=== PATIENT | male | born 1970 ===

== ENCOUNTER 2016-12-09 18:04 | Inpatient (IN) | payer SELFPAY ==
[2016-12-09] MEDS ORDERED: Sodium Chloride 0.9% 1,000 ML IV STA (19:51)
[2016-12-09 20:07] LABS: BASO % 0.2 % (0.0-2.0); HEMATOCRIT 46.6 % (35.0-51.0); LYMPH # 0.9 K/uL (1.0-4.3); MEAN CELL VOLUME 89.7 fL (80.0-94.0); MEAN CORPUSCULAR HEMOGLOBIN 29.7 pg (27.0-31.0); MEAN CORPUSCULAR HGB CONC 33.1 g/dL (33.0-37.0); MEAN PLATELET VOLUME 9.3 fL (7.2-11.7); MONO % 4.6 % (0.0-10.0); PLATELET COUNT 493 K/uL (130-400); RED CELL DISTRIBUTION WIDTH 13.6 % (11.5-14.5); WHITE BLOOD COUNT 21.4 K/uL (4.8-10.8)
[2016-12-09 20:12] LABS: URINE BILIRUBIN NEGATIVE (NEGATIVE); URINE COLOR Straw (YELLOW); URINE GLUCOSE (UA) 3+ mg/dL (Normal); URINE KETONE 2+ mg/dL (NEGATIVE); URINE LEUKOCYTE ESTERASE NEG Leu/uL (Negative); URINE PROTEIN 2+ mg/dL (NEGATIVE); URINE UROBILINOGEN NORMAL mg/dL (0.2-1.0); WBC URINE < 1 /hpf (0-5)
[2016-12-09 20:15] LABS: CHLORIDE 95 mmol/L (98-107); SODIUM 137 mmol/L (132-148)
--- NOTE | 2016-12-09 20:15 | C.PDOC ---
History Of Present Illness 46 year old male with a Hx of IDDM who presents to the ER with a complaint of vomiting and abdominal pain x1 day. Patient states he has been vomiting every 2 hours and has not taken anything for his symptoms. Patient reports he recently came [place] this country from [facility] 10 days ago. Denies Hx of previous symptoms , bloody vomiting, fever, or diarrhea. Time Seen by Provider: 12/09/16 19:10 Chief Complaint (Nursing): Abdominal Pain History Per: Patient History/Exam Limitations: no limitations Onset/Duration Of Symptoms: Days (1) Current Symptoms Are (Timing): Still Present Location Of Pain/Discomfort: Epigastric Radiation Of Pain To:: None Quality Of Discomfort: Unable To Describe Associated Symptoms: Vomiting. denies: Fever, Diarrhea Exacerbating Factors: None Alleviating Factors: None Recent travel outside of the [place]: No Past Medical History Reviewed: Historical Data, Nursing Documentation, Vital Signs Vital Signs: Last Vital Signs Temp 98.2 F 12/09/16 18:16 Pulse 117 H 12/09/16 18:16 Resp 23 12/09/16 18:16 BP 135/87 12/09/16 18:16 Pulse Ox 100 12/09/16 22:02 - Medical History PMH: Diabetes Surgical History: No Surg Hx Family History: States: Unknown Family Hx - Social History Hx Alcohol Use: No Hx Substance Use: No - Immunization History Hx Tetanus Toxoid Vaccination: No Hx Influenza Vaccination: Yes Hx Pneumococcal Vaccination: No Review Of Systems Except As Marked, All Systems Reviewed And Found Negative. Constitutional: Negative for: Fever Gastrointestinal: Positive for: Vomiting, Abdominal Pain. Negative for: Diarrhea Physical Exam - Physical Exam Additional Physical Exam Comments: Constitutional: No acute distress. Head: Normocephalic. Atraumatic. Eyes: PERRL. EOMI. ENT: Dry mucous membranes. Neck: Supple. Cardiovascular: Tachycardic. Radial pulses 2+ bilaterally. Chest: No tenderness. Respiratory: Clear to auscultation bilaterally. GI: Soft. Nontender. Nondistended. Back: No CVA tenderness. Musculoskeletal: No tenderness or swelling of extremities. Skin: No rash. Neurologic: Alert, no focal deficit. ED Course And Treatment O2 Sat by Pulse Oximetry: 100 (Room air) Pulse Ox Interpretation: Normal Medical Decision Making Medical Decision Making: Plan: * CT abd/pel * EKG * Blood work * Urine culture * Zofran * IV fluids EKG: SR 110 bmp, no ST/T wave changes VBG shows pH 7.13. WBC 21.4 Glucose 580 Creatinine 1.7 Potassium 5.3 CO2 8 Lipase 838 AST/ALT/Tbili WNL Ketones Moderate UA shows no infection FINDINGS: Lower thorax: The bilateral lung bases are clear. Small hiatal hernia. ABDOMEN: Liver: No acute findings Gallbladder and bile ducts: No acute finding. No calcified stones. No intra-extrahepatic biliary ductal dilation. Pancreas: Limited evaluation secondary to the lack of intravenous contrast. Spleen: No acute findings. Adrenals: No acute findings. Kidneys and ureters: No obstructing stones. No hydronephrosis. PELVIS: Bladder: No acute findings. Reproductive: No acute findings. Appendix: The appendix is of normal caliber (series 3, image 131; series 601 , image 58). ABDOMEN and PELVIS: Stomach and bowel: No acute findings. Peritoneum: No acute findings. Lymph nodes: Limited evaluation without intravenous contrast. Vasculature: No aortic aneurysm. Bones: No acute fracture. IMPRESSION: No obstructive uropathy. Normal appendix. Small hiatal hernia. [facility] accepts patient to ICU. Started on insulin drip. Dr. Guzman accepts patient to hospitalist service. Disposition - Disposition Disposition: HOSPITALIZED Disposition Time: 21:55 Condition: CRITICAL Forms: [facility] (Tajik) - Clinical Impression Clinical Impression: Diabetic ketoacidosis - Scribe Statement The provider has reviewed the documentation as recorded by the Scribtulio Edwards All medical record entries made by the Scribe were at my direction and personally dictated by me. I have reviewed the chart and agree that the record accurately reflects my personal performance of the history, physical exam, medical decision making, and the department course for this patient. I have also personally directed, reviewed, and agree with the discharge instructions and disposition.
[2016-12-09 20:16] LABS: POTASSIUM 5.3 mmol/L (3.6-5.2)
[2016-12-09 20:17] LABS: GFR AFRICAN-AMERICAN 53
[2016-12-09 20:18] LABS: ALB/GLOB RATIO 1.4 (1.0-2.1); ALKALINE PHOSPHATASE 108 U/L (38-126); ALT/SGPT 47 U/L (21-72); AST/SGOT 27 U/L (17-59); BILIRUBIN,TOTAL 0.7 mg/dL (0.2-1.3); BLOOD UREA NITROGEN 27 mg/dL (9-20); CALCIUM 9.7 mg/dl (8.6-10.4)
[2016-12-09 20:19] LABS: DRAW SITE VENOUS; VENOUS BLOOD GAS BASE EXCESS -18.5 mmol/L (0.0-2.0); VENOUS BLOOD GAS PCO2 28 mmHg (40-60); VENOUS BLOOD PH 7.13 (7.32-7.43)
[2016-12-09 20:20] LABS: CARBON DIOXIDE 8 mmol/L (22-30); GLUCOSE,RANDOM 580 mg/dL (75-110); RBC URINE 3 /hpf (0-3)
[2016-12-09 20:22] LABS: URINE BLOOD 1+ (NEGATIVE)
[2016-12-09] MEDS ORDERED: Piperacill/Tazo 4.5gm in Dex 4.5 GM/100 ML BAG IVPB STA (20:38)
[2016-12-09] MEDS ORDERED: Vancomycin 1 gm/NS 200 ml 1 GM/200 ML BAG IVPB STA (20:38)
[2016-12-09] MEDS ORDERED: (Novolin R) Insulin Human Regular 100 units/ml vial IV STA (20:38)
[2016-12-09] MEDS ORDERED: (Novolin R) Insulin Human Regular 100 units/ml vial ONE (20:43)
[2016-12-09] MEDS ORDERED: Vancomycin 1 GM 1 GM/250 ML BAG IVPB ONE (20:43)
[2016-12-09 20:49] LABS: NEUTROPHIL 91 % (50-75); TOTAL CELLS COUNTED 100
--- NOTE | 2016-12-09 21:50 | CT ---
EXAM: CT Abdomen and Pelvis Without Intravenous Contrast CLINICAL HISTORY: 46 years old, male; Pain and signs and symptoms; Vomiting; Abdominal pain; Additional info: Abdominal pain, vomiting TECHNIQUE: Axial computed tomography images of the abdomen and pelvis without intravenous contrast. All CT scans at this facility use one or more dose reduction techniques, viz.: automated exposure control; ma/kV adjustment per patient size (including targeted exams where dose is matched to indication; i.e. head); or iterative reconstruction technique. COMPARISON: No relevant prior studies available. FINDINGS: Lower thorax: The bilateral lung bases are clear. Small hiatal hernia. ABDOMEN: Liver: No acute findings Gallbladder and bile ducts: No acute finding. No calcified stones. No intra-extrahepatic biliary ductal dilation. Pancreas: Limited evaluation secondary to the lack of intravenous contrast. Spleen: No acute findings. Adrenals: No acute findings. Kidneys and ureters: No obstructing stones. No hydronephrosis. PELVIS: Bladder: No acute findings. Reproductive: No acute findings. Appendix: The appendix is of normal caliber (series 3, image 131; series 601, image 58). ABDOMEN and PELVIS: Stomach and bowel: No acute findings. Peritoneum: No acute findings. Lymph nodes: Limited evaluation without intravenous contrast. Vasculature: No aortic aneurysm. Bones: No acute fracture. IMPRESSION: No obstructive uropathy. Normal appendix. Small hiatal hernia.
[2016-12-09] MEDS ORDERED: Insulin Human Regular 100 UNIT in Sodium Chloride 0.9% 99 ML IV SCH (22:15)
[2016-12-09] MEDS: Insulin Human Regular 100 UNIT in Sodium Chloride 0.9% 99 ML IV SCH (23:30)
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
[2016-12-10] MEDS: Potassium Chloride 20 MEQ in Dextrose 5%/0.45% NS 1,000 ML IV SCH ×5 (00:56→15:27)
[2016-12-10] MEDS: Insulin Human Regular 100 UNIT in Sodium Chloride 0.9% 99 ML IV SCH ×2 (01:55→11:07)
[2016-12-10 06:57] LABS: BASO # 0.1 K/uL (0.0-0.2); BASO % 0.4 % (0.0-2.0); EOS % 0.1 % (0.0-4.0); HEMATOCRIT 40.3 % (35.0-51.0); LYMPH # 1.4 K/uL (1.0-4.3); LYMPH % 8.1 % (20.0-40.0); MEAN CELL VOLUME 86.8 fL (80.0-94.0); MEAN CORPUSCULAR HEMOGLOBIN 29.9 pg (27.0-31.0); MEAN CORPUSCULAR HGB CONC 34.4 g/dL (33.0-37.0); MEAN PLATELET VOLUME 9.5 fL (7.2-11.7); MONO # 1.5 K/uL (0.0-0.8); NRBC % 0.1 % (0.0-2.0); PLATELET COUNT 343 K/uL (130-400); RED CELL DISTRIBUTION WIDTH 13.5 % (11.5-14.5); WHITE BLOOD COUNT 17.1 K/uL (4.8-10.8)
[2016-12-10 07:10] LABS: CHLORIDE 106 mmol/L (98-107)
[2016-12-10 07:11] LABS: POTASSIUM 4.8 mmol/L (3.6-5.2); SODIUM 138 mmol/L (132-148)
[2016-12-10 07:13] LABS: ALB/GLOB RATIO 1.2 (1.0-2.1); ALKALINE PHOSPHATASE 79 U/L (38-126); AST/SGOT 25 U/L (17-59); BILIRUBIN,TOTAL 0.7 mg/dL (0.2-1.3); CARBON DIOXIDE 15 mmol/L (22-30); GFR AFRICAN-AMERICAN > 60; TOTAL PROTEIN 7.8 g/dL (6.3-8.3)
[2016-12-10 07:14] LABS: ALT/SGPT 41 U/L (21-72); BLOOD UREA NITROGEN 29 mg/dL (9-20); CALCIUM 8.7 mg/dl (8.6-10.4); GLUCOSE,RANDOM 181 mg/dL (75-110); MAGNESIUM 2.4 mg/dL (1.6-2.3); PHOSPHOROUS 2.7 mg/dL (2.5-4.5)
[2016-12-10 09:17] LABS: LARGE PLATELETS PRESENT; NEUTROPHIL 85 % (50-75); TOTAL CELLS COUNTED 100
--- NOTE | 2016-12-10 09:40 | CP.CCUPN ---
CCU Subjective - Physician Review Events Since Last Encounter (Free Text): 12/10/16 09:39 41-year-old male with a diabetes admitted with DKA. Currently on insulin drip. Nausea noted. His clinically stable otherwise. We'll continue to monitor the glucose, anion gap. Repeat the labs in midday. Possibly will discontinue insulin drip in the afternoon, after that the patient can be transferred to the floor. We'll watch the anion gap CCU Objective - Vital Signs / Intake & Output Vital Signs (Last 4 hours): Vital Signs Temp Pulse Resp BP Pulse Ox 12/10/16 09:00 98 H 21 125/76 99 12/10/16 08:00 98.3 F 103 H 18 129/80 98 12/10/16 07:00 101 H 24 106/58 L 100 12/10/16 06:02 107 H 21 126/76 Intake and Output (Last 8hrs): Intake & Output 12/09/16 12/10/16 12/10/16 22:59 06:59 14:59 Intake Total 847.5 487 Output Total 350 0 Balance 497.5 487 Weight 167 lb 8.821 oz 166 lb 0.51 oz Intake: IV 162 29 Intake, IV Amount 685.5 458 Left Hand 675 450 Right Antecubital 10.5 8 Oral 0 0 Output: Urine 350 0 Urine, Voided 350 0 Stool 0 0 Other: Voiding Method Urinal # Voids Urine, Voided 1 0 # Bowel Movements 0 - Medications Active Medications: Active Medications Generic Name Dose Route Start Last Admin Trade Name Freq PRN Reason Stop Dose Admin Heparin Sodium (Porcine) 5,000 units 12/10/16 06:00 12/10/16 06:00 Heparin SC 5,000 units Q8 SEBLE Administration Potassium Chloride 20 meq/ 1,010 mls @ 150 mls/hr 12/09/16 23:45 12/10/16 08: 03 Dextrose/Sodium Chloride IV 150 mls/hr .[id number] SEBLE Administration Insulin Human Regular 100 unit 100 mls @ 4 mls/hr 12/09/16 23:55 12/10/16 08: 05 / Sodium Chloride IV 2 units/hr .Q24H SEBLE 2 mls/hr Protocol Titration Ondansetron HCl 4 mg 12/09/16 23:53 12/10/16 07:41 Zofran Inj IVP 4 mg Q6 PRN Administration Nausea/Vomiting Pantoprazole Sodium 40 mg 12/10/16 10:00 Protonix Inj IVP DAILY SEBLE - Patient Studies Lab Studies: Lab Studies 12/10/16 12/10/16 12/10/16 Range/Units 09:08 08:04 07:09 WBC (4.8-10.8) K/uL RBC (4.40-5.90) Mil/uL Hgb (12.0-18.0) g/dL Hct (35.0-51.0) % MCV (80.0-94.0) fL MCH (27.0-31.0) pg MCHC (33.0-37.0) g/dL RDW (11.5-14.5) % Plt Count (130-400) K/uL MPV (7.2-11.7) fL Neut % (Auto) (50.0-75.0) % Lymph % (Auto) (20.0-40.0) % [place] % (Auto) (0.0-10.0) % Eos % (Auto) (0.0-4.0) % Baso % (Auto) (0.0-2.0) % Neut # (1.8-7.0) K/uL Lymph # (1.0-4.3) K/uL [place] # (0.0-0.8) K/uL Eos # (0.0-0.7) K/uL Baso # (0.0-0.2) K/uL Neutrophils % (Manual) (50-75) % Band Neutrophils % (0-2) % Lymphocytes % (Manual) (20-40) % Monocytes % (Manual) (0-10) % Platelet Estimate (NORMAL) Large Platelets Hypochromasia (manual) Poikilocytosis (manual Ovalocytes Puncture Site pO2 (30-55) mm/Hg Antony Test VBG pH (7.32-7.43) VBG pCO2 (40-60) mmHg VBG HCO3 mmol/L VBG O2 Sat (Calc) (40-65) % VBG Base Excess (0.0-2.0) mmol/L Crit Value Called To Crit Value Called By Crit Value Read Back Blood Gas Notified Time Sodium (132-148) mmol/L Potassium (3.6-5.2) mmol/L Chloride (98-107) mmol/L Carbon Dioxide (22-30) mmol/L Anion Gap (10-20) BUN (9-20) mg/dL Creatinine (0.8-1.5) mg/dL Est GFR ( Amer) Est GFR (Non-Af Amer) POC Glucose (mg/dL) 189 H 183 H 221 H (65-110) mg/dL Random Glucose (75-110) mg/dL Lactic Acid (0.7-2.1) mmol/L Calcium (8.6-10.4) mg/dl Phosphorus (2.5-4.5) mg/dL Magnesium (1.6-2.3) mg/dL Total Bilirubin (0.2-1.3) mg/dL AST (17-59) U/L ALT (21-72) U/L Alkaline Phosphatase (38-126) U/L Total Protein (6.3-8.3) g/dL Albumin (3.5-5.0) g/dL Globulin (2.2-3.9) gm/dL Albumin/Globulin Ratio (1.0-2.1) Lipase (23-300) U/L Urine Color (YELLOW) Urine Clarity (Clear) Urine pH (5.0-8.0) Ur Specific Bronson (1.003-1.030) Urine Protein (NEGATIVE) mg/dL Urine Glucose (UA) (Normal) mg/dL Urine Ketones (NEGATIVE) mg/dL Urine Blood (NEGATIVE) Urine Nitrate (NEGATIVE) Urine Bilirubin (NEGATIVE) Urine Urobilinogen (0.2-1.0) mg/dL Ur Leukocyte Esterase (Negative) Bon/uL Urine WBC (Auto) (0-5) /hpf Urine RBC (Auto) (0-3) /hpf Serum Ketones (NEGATIVE) 12/10/16 12/10/16 12/10/16 Range/Units 06:48 06:46 05:49 WBC 17.1 H (4.8-10.8) K/uL RBC 4.64 (4.40-5.90) Mil/uL Hgb 13.9 (12.0-18.0) g/dL Hct 40.3 (35.0-51.0) % MCV 86.8 D (80.0-94.0) fL MCH 29.9 (27.0-31.0) pg MCHC 34.4 (33.0-37.0) g/dL RDW 13.5 (11.5-14.5) % Plt Count 343 D (130-400) K/uL MPV 9.5 (7.2-11.7) fL Neut % (Auto) 82.4 H (50.0-75.0) % Lymph % (Auto) 8.1 L (20.0-40.0) % [place] % (Auto) 9.0 (0.0-10.0) % Eos % (Auto) 0.1 (0.0-4.0) % Baso % (Auto) 0.4 (0.0-2.0) % Neut # 14.1 H (1.8-7.0) K/uL Lymph # 1.4 (1.0-4.3) K/uL [place] # 1.5 H (0.0-0.8) K/uL Eos # 0.0 (0.0-0.7) K/uL Baso # 0.1 (0.0-0.2) K/uL Neutrophils % (Manual) 85 H (50-75) % Band Neutrophils % 2 (0-2) % Lymphocytes % (Manual) 6 L (20-40) % Monocytes % (Manual) 7 (0-10) % Platelet Estimate Normal (NORMAL) Large Platelets Present Hypochromasia (manual) Slight Poikilocytosis (manual Slight Ovalocytes Slight Puncture Site pO2 (30-55) mm/Hg Antony Test VBG pH (7.32-7.43) VBG pCO2 (40-60) mmHg VBG HCO3 mmol/L VBG O2 Sat (Calc) (40-65) % VBG Base Excess (0.0-2.0) mmol/L Crit Value Called To Crit Value Called By Crit Value Read Back Blood Gas Notified Time Sodium 138 (132-148) mmol/L Potassium 4.8 (3.6-5.2) mmol/L Chloride 106 (98-107) mmol/L Carbon Dioxide 15 L (22-30) mmol/L Anion Gap 22 H (10-20) BUN 29 H (9-20) mg/dL Creatinine 1.3 (0.8-1.5) mg/dL Est GFR ( Amer) > 60 Est GFR (Non-Af Amer) 60 POC Glucose (mg/dL) 210 H (65-110) mg/dL Random Glucose 181 H (75-110) mg/dL Lactic Acid (0.7-2.1) mmol/L Calcium 8.7 (8.6-10.4) mg/dl Phosphorus 2.7 (2.5-4.5) mg/dL Magnesium 2.4 H (1.6-2.3) mg/dL Total Bilirubin 0.7 (0.2-1.3) mg/dL AST 25 (17-59) U/L ALT 41 (21-72) U/L Alkaline Phosphatase 79 (38-126) U/L Total Protein 7.8 (6.3-8.3) g/dL Albumin 4.3 (3.5-5.0) g/dL Globulin 3.5 (2.2-3.9) gm/dL Albumin/Globulin Ratio 1.2 (1.0-2.1) Lipase (23-300) U/L Urine Color (YELLOW) Urine Clarity (Clear) Urine pH (5.0-8.0) Ur Specific Bronson (1.003-1.030) Urine Protein (NEGATIVE) mg/dL Urine Glucose (UA) (Normal) mg/dL Urine Ketones (NEGATIVE) mg/dL Urine Blood (NEGATIVE) Urine Nitrate (NEGATIVE) Urine Bilirubin (NEGATIVE) Urine Urobilinogen (0.2-1.0) mg/dL Ur Leukocyte Esterase (Negative) Bon/uL Urine WBC (Auto) (0-5) /hpf Urine RBC (Auto) (0-3) /hpf Serum Ketones (NEGATIVE) 12/10/16 12/10/16 12/09/16 Range/Units 04:06 03:08 21:48 WBC (4.8-10.8) K/uL RBC (4.40-5.90) Mil/uL Hgb (12.0-18.0) g/dL Hct (35.0-51.0) % MCV (80.0-94.0) fL MCH (27.0-31.0) pg MCHC (33.0-37.0) g/dL RDW (11.5-14.5) % Plt Count (130-400) K/uL MPV (7.2-11.7) fL Neut % (Auto) (50.0-75.0) % Lymph % (Auto) (20.0-40.0) % [place] % (Auto) (0.0-10.0) % Eos % (Auto) (0.0-4.0) % Baso % (Auto) (0.0-2.0) % Neut # (1.8-7.0) K/uL Lymph # (1.0-4.3) K/uL [place] # (0.0-0.8) K/uL Eos # (0.0-0.7) K/uL Baso # (0.0-0.2) K/uL Neutrophils % (Manual) (50-75) % Band Neutrophils % (0-2) % Lymphocytes % (Manual) (20-40) % Monocytes % (Manual) (0-10) % Platelet Estimate (NORMAL) Large Platelets Hypochromasia (manual) Poikilocytosis (manual Ovalocytes Puncture Site pO2 (30-55) mm/Hg Antony Test VBG pH (7.32-7.43) VBG pCO2 (40-60) mmHg VBG HCO3 mmol/L VBG O2 Sat (Calc) (40-65) % VBG Base Excess (0.0-2.0) mmol/L Crit Value Called To Crit Value Called By Crit Value Read Back Blood Gas Notified Time Sodium (132-148) mmol/L Potassium (3.6-5.2) mmol/L Chloride (98-107) mmol/L Carbon Dioxide (22-30) mmol/L Anion Gap (10-20) BUN (9-20) mg/dL Creatinine (0.8-1.5) mg/dL Est GFR ( Amer) Est GFR (Non-Af Amer) POC Glucose (mg/dL) 179 H 200 H 267 H (65-110) mg/dL Random Glucose (75-110) mg/dL Lactic Acid (0.7-2.1) mmol/L Calcium (8.6-10.4) mg/dl Phosphorus (2.5-4.5) mg/dL Magnesium (1.6-2.3) mg/dL Total Bilirubin (0.2-1.3) mg/dL AST (17-59) U/L ALT (21-72) U/L Alkaline Phosphatase (38-126) U/L Total Protein (6.3-8.3) g/dL Albumin (3.5-5.0) g/dL Globulin (2.2-3.9) gm/dL Albumin/Globulin Ratio (1.0-2.1) Lipase (23-300) U/L Urine Color (YELLOW) Urine Clarity (Clear) Urine pH (5.0-8.0) Ur Specific Bronson (1.003-1.030) Urine Protein (NEGATIVE) mg/dL Urine Glucose (UA) (Normal) mg/dL Urine Ketones (NEGATIVE) mg/dL Urine Blood (NEGATIVE) Urine Nitrate (NEGATIVE) Urine Bilirubin (NEGATIVE) Urine Urobilinogen (0.2-1.0) mg/dL Ur Leukocyte Esterase (Negative) Bon/uL Urine WBC (Auto) (0-5) /hpf Urine RBC (Auto) (0-3) /hpf Serum Ketones (NEGATIVE) 12/09/16 12/09/16 12/09/16 Range/Units 21:14 20:15 19:59 WBC (4.8-10.8) K/uL RBC (4.40-5.90) Mil/uL Hgb (12.0-18.0) g/dL Hct (35.0-51.0) % MCV (80.0-94.0) fL MCH (27.0-31.0) pg MCHC (33.0-37.0) g/dL RDW (11.5-14.5) % Plt Count (130-400) K/uL MPV (7.2-11.7) fL Neut % (Auto) (50.0-75.0) % Lymph % (Auto) (20.0-40.0) % [place] % (Auto) (0.0-10.0) % Eos % (Auto) (0.0-4.0) % Baso % (Auto) (0.0-2.0) % Neut # (1.8-7.0) K/uL Lymph # (1.0-4.3) K/uL [place] # (0.0-0.8) K/uL Eos # (0.0-0.7) K/uL Baso # (0.0-0.2) K/uL Neutrophils % (Manual) (50-75) % Band Neutrophils % (0-2) % Lymphocytes % (Manual) (20-40) % Monocytes % (Manual) (0-10) % Platelet Estimate (NORMAL) Large Platelets Hypochromasia (manual) Poikilocytosis (manual Ovalocytes Puncture Site Venous pO2 37 (30-55) mm/Hg Antony Test Na VBG pH 7.13 L* (7.32-7.43) VBG pCO2 28 L (40-60) mmHg VBG HCO3 9.2 mmol/L VBG O2 Sat (Calc) 71.4 H (40-65) % VBG Base Excess -18.5 L (0.0-2.0) mmol/L Crit Value Called To Dr. estrella sams Crit Value Called By April rt Crit Value Read Back Y Blood Gas Notified Time 2018 Sodium 137 (132-148) mmol/L Potassium 5.3 H (3.6-5.2) mmol/L Chloride 95 L (98-107) mmol/L Carbon Dioxide 8 L* (22-30) mmol/L Anion Gap 39 H (10-20) BUN 27 H (9-20) mg/dL Creatinine 1.7 H (0.8-1.5) mg/dL Est GFR ( Amer) 53 Est GFR (Non-Af Amer) 44 POC Glucose (mg/dL) (65-110) mg/dL Random Glucose 580 H* (75-110) mg/dL Lactic Acid 1.8 (0.7-2.1) mmol/L Calcium 9.7 (8.6-10.4) mg/dl Phosphorus (2.5-4.5) mg/dL Magnesium (1.6-2.3) mg/dL Total Bilirubin 0.7 (0.2-1.3) mg/dL AST 27 (17-59) U/L ALT 47 (21-72) U/L Alkaline Phosphatase 108 (38-126) U/L Total Protein 9.0 H (6.3-8.3) g/dL Albumin 5.3 H (3.5-5.0) g/dL Globulin 3.7 (2.2-3.9) gm/dL Albumin/Globulin Ratio 1.4 (1.0-2.1) Lipase 838 H (23-300) U/L Urine Color (YELLOW) Urine Clarity (Clear) Urine pH (5.0-8.0) Ur Specific Bronson (1.003-1.030) Urine Protein (NEGATIVE) mg/dL Urine Glucose (UA) (Normal) mg/dL Urine Ketones (NEGATIVE) mg/dL Urine Blood (NEGATIVE) Urine Nitrate (NEGATIVE) Urine Bilirubin (NEGATIVE) Urine Urobilinogen (0.2-1.0) mg/dL Ur Leukocyte Esterase (Negative) Bon/uL Urine WBC (Auto) (0-5) /hpf Urine RBC (Auto) (0-3) /hpf Serum Ketones Moderate (NEGATIVE) 12/09/16 12/09/16 Range/Units 19:59 19:59 WBC 21.4 H (4.8-10.8) K/uL RBC 5.20 (4.40-5.90) Mil/uL Hgb 15.5 (12.0-18.0) g/dL Hct 46.6 (35.0-51.0) % MCV 89.7 (80.0-94.0) fL MCH 29.7 (27.0-31.0) pg MCHC 33.1 (33.0-37.0) g/dL RDW 13.6 (11.5-14.5) % Plt Count 493 H (130-400) K/uL MPV 9.3 (7.2-11.7) fL Neut % (Auto) 91.2 H (50.0-75.0) % Lymph % (Auto) 4.0 L (20.0-40.0) % [place] % (Auto) 4.6 (0.0-10.0) % Eos % (Auto) 0.0 (0.0-4.0) % Baso % (Auto) 0.2 (0.0-2.0) % Neut # 19.6 H (1.8-7.0) K/uL Lymph # 0.9 L (1.0-4.3) K/uL [place] # 1.0 H (0.0-0.8) K/uL Eos # 0.0 (0.0-0.7) K/uL Baso # 0.0 (0.0-0.2) K/uL Neutrophils % (Manual) 91 H (50-75) % Band Neutrophils % (0-2) % Lymphocytes % (Manual) 5 L (20-40) % Monocytes % (Manual) 4 (0-10) % Platelet Estimate Increased H (NORMAL) Large Platelets Hypochromasia (manual) Poikilocytosis (manual Ovalocytes Puncture Site pO2 (30-55) mm/Hg Antony Test VBG pH (7.32-7.43) VBG pCO2 (40-60) mmHg VBG HCO3 mmol/L VBG O2 Sat (Calc) (40-65) % VBG Base Excess (0.0-2.0) mmol/L Crit Value Called To Crit Value Called By Crit Value Read Back Blood Gas Notified Time Sodium (132-148) mmol/L Potassium (3.6-5.2) mmol/L Chloride (98-107) mmol/L Carbon Dioxide (22-30) mmol/L Anion Gap (10-20) BUN (9-20) mg/dL Creatinine (0.8-1.5) mg/dL Est GFR ( Amer) Est GFR (Non-Af Amer) POC Glucose (mg/dL) (65-110) mg/dL Random Glucose (75-110) mg/dL Lactic Acid (0.7-2.1) mmol/L Calcium (8.6-10.4) mg/dl Phosphorus (2.5-4.5) mg/dL Magnesium (1.6-2.3) mg/dL Total Bilirubin (0.2-1.3) mg/dL AST (17-59) U/L ALT (21-72) U/L Alkaline Phosphatase (38-126) U/L Total Protein (6.3-8.3) g/dL Albumin (3.5-5.0) g/dL Globulin (2.2-3.9) gm/dL Albumin/Globulin Ratio (1.0-2.1) Lipase (23-300) U/L Urine Color Straw (YELLOW) Urine Clarity Clear (Clear) Urine pH 5.0 (5.0-8.0) Ur Specific Bronson 1.020 (1.003-1.030) Urine Protein 2+ H (NEGATIVE) mg/dL Urine Glucose (UA) 3+ H (Normal) mg/dL Urine Ketones 2+ H (NEGATIVE) mg/dL Urine Blood 1+ H (NEGATIVE) Urine Nitrate Negative (NEGATIVE) Urine Bilirubin Negative (NEGATIVE) Urine Urobilinogen Normal (0.2-1.0) mg/dL Ur Leukocyte Esterase Neg (Negative) Bon/uL Urine WBC (Auto) < 1 (0-5) /hpf Urine RBC (Auto) 3 (0-3) /hpf Serum Ketones (NEGATIVE) Laboratory Results - last 24 hr 12/09/16 12/09/16 12/09/16 19:59 19:59 19:59 WBC 21.4 H RBC 5.20 Hgb 15.5 Hct 46.6 MCV 89.7 MCH 29.7 MCHC 33.1 RDW 13.6 Plt Count 493 H MPV 9.3 Neut % (Auto) 91.2 H Lymph % (Auto) 4.0 L [place] % (Auto) 4.6 Eos % (Auto) 0.0 Baso % (Auto) 0.2 Neut # 19.6 H Lymph # 0.9 L [place] # 1.0 H Eos # 0.0 Baso # 0.0 Neutrophils % (Manual) 91 H Band Neutrophils % Lymphocytes % (Manual) 5 L Monocytes % (Manual) 4 Platelet Estimate Increased H Large Platelets Hypochromasia (manual) Poikilocytosis (manual Ovalocytes Puncture Site pO2 Antony Test VBG pH VBG pCO2 VBG HCO3 VBG O2 Sat (Calc) VBG Base Excess Crit Value Called To Crit Value Called By Crit Value Read Back Blood Gas Notified Time Sodium 137 Potassium 5.3 H Chloride 95 L Carbon Dioxide 8 L* Anion Gap 39 H BUN 27 H Creatinine 1.7 H Est GFR ( Amer) 53 Est GFR (Non-Af Amer) 44 POC Glucose (mg/dL) Random Glucose 580 H* Lactic Acid Calcium 9.7 Phosphorus Magnesium Total Bilirubin 0.7 AST 27 ALT 47 Alkaline Phosphatase 108 Total Protein 9.0 H Albumin 5.3 H Globulin 3.7 Albumin/Globulin Ratio 1.4 Lipase 838 H Urine Color Straw Urine Clarity Clear Urine pH 5.0 Ur Specific [place]onson 1.020 Urine Protein 2+ H Urine Glucose (UA) 3+ H Urine Ketones 2+ H Urine Blood 1+ H Urine Nitrate Negative Urine Bilirubin Negative Urine Urobilinogen Normal Ur Leukocyte Esterase Neg Urine WBC (Auto) < 1 Urine RBC (Auto) 3 Serum Ketones Moderate 12/09/16 12/09/16 12/09/16 20:15 21:14 21:48 WBC RBC Hgb Hct MCV MCH MCHC RDW Plt Count MPV Neut % (Auto) Lymph % (Auto) [place] % (Auto) Eos % (Auto) Baso % (Auto) Neut # Lymph # [place] # Eos # Baso # Neutrophils % (Manual) Band Neutrophils % Lymphocytes % (Manual) Monocytes % (Manual) Platelet Estimate Large Platelets Hypochromasia (manual) Poikilocytosis (manual Ovalocytes Puncture Site Venous pO2 37 Antony Test Na VBG pH 7.13 L* VBG pCO2 28 L VBG HCO3 9.2 VBG O2 Sat (Calc) 71.4 H VBG Base Excess -18.5 L Crit Value Called To Dr. estrella sams Crit Value Called By April rt Crit Value Read Back Y Blood Gas Notified Time 2019 Sodium Potassium Chloride Carbon Dioxide Anion Gap BUN Creatinine Est GFR ( Amer) Est GFR (Non-Af Amer) POC Glucose (mg/dL) 267 H Random Glucose Lactic Acid 1.8 Calcium Phosphorus Magnesium Total Bilirubin AST ALT Alkaline Phosphatase Total Protein Albumin Globulin Albumin/Globulin Ratio Lipase Urine Color Urine Clarity Urine pH Ur Specific Bronson Urine Protein Urine Glucose (UA) Urine Ketones Urine Blood Urine Nitrate Urine Bilirubin Urine Urobilinogen Ur Leukocyte Esterase Urine WBC (Auto) Urine RBC (Auto) Serum Ketones 12/10/16 12/10/16 12/10/16 03:08 04:06 05:49 WBC RBC Hgb Hct MCV MCH MCHC RDW Plt Count MPV Neut % (Auto) Lymph % (Auto) [place] % (Auto) Eos % (Auto) Baso % (Auto) Neut # Lymph # [place] # Eos # Baso # Neutrophils % (Manual) Band Neutrophils % Lymphocytes % (Manual) Monocytes % (Manual) Platelet Estimate Large Platelets Hypochromasia (manual) Poikilocytosis (manual Ovalocytes Puncture Site pO2 Antony Test VBG pH VBG pCO2 VBG HCO3 VBG O2 Sat (Calc) VBG Base Excess Crit Value Called To Crit Value Called By Crit Value Read Back Blood Gas Notified Time Sodium Potassium Chloride Carbon Dioxide Anion Gap BUN Creatinine Est GFR ( Amer) Est GFR (Non-Af Amer) POC Glucose (mg/dL) 200 H 179 H 210 H Random Glucose Lactic Acid Calcium Phosphorus Magnesium Total Bilirubin AST ALT Alkaline Phosphatase Total Protein Albumin Globulin Albumin/Globulin Ratio Lipase Urine Color Urine Clarity Urine pH Ur Specific Bronson Urine Protein Urine Glucose (UA) Urine Ketones Urine Blood Urine Nitrate Urine Bilirubin Urine Urobilinogen Ur Leukocyte Esterase Urine WBC (Auto) Urine RBC (Auto) Serum Ketones 12/10/16 12/10/16 12/10/16 06:46 06:48 07:09 WBC 17.1 H RBC 4.64 Hgb 13.9 Hct 40.3 MCV 86.8 D MCH 29.9 MCHC 34.4 RDW 13.5 Plt Count 343 D MPV 9.5 Neut % (Auto) 82.4 H Lymph % (Auto) 8.1 L [place] % (Auto) 9.0 Eos % (Auto) 0.1 Baso % (Auto) 0.4 Neut # 14.1 H Lymph # 1.4 [place] # 1.5 H Eos # 0.0 Baso # 0.1 Neutrophils % (Manual) 85 H Band Neutrophils % 2 Lymphocytes % (Manual) 6 L Monocytes % (Manual) 7 Platelet Estimate Normal Large Platelets Present Hypochromasia (manual) Slight Poikilocytosis (manual Slight Ovalocytes Slight Puncture Site pO2 Antony Test VBG pH VBG pCO2 VBG HCO3 VBG O2 Sat (Calc) VBG Base Excess Crit Value Called To Crit Value Called By Crit Value Read Back Blood Gas Notified Time Sodium 138 Potassium 4.8 Chloride 106 Carbon Dioxide 15 L Anion Gap 22 H BUN 29 H Creatinine 1.3 Est GFR ( Amer) > 60 Est GFR (Non-Af Amer) 60 POC Glucose (mg/dL) 221 H Random Glucose 181 H Lactic Acid Calcium 8.7 Phosphorus 2.7 Magnesium 2.4 H Total Bilirubin 0.7 AST 25 ALT 41 Alkaline Phosphatase 79 Total Protein 7.8 Albumin 4.3 Globulin 3.5 Albumin/Globulin Ratio 1.2 Lipase Urine Color Urine Clarity Urine pH Ur Specific Bronson Urine Protein Urine Glucose (UA) Urine Ketones Urine Blood Urine Nitrate Urine Bilirubin Urine Urobilinogen Ur Leukocyte Esterase Urine WBC (Auto) Urine RBC (Auto) Serum Ketones 12/10/16 12/10/16 08:04 09:08 WBC RBC Hgb Hct MCV MCH MCHC RDW Plt Count MPV Neut % (Auto) Lymph % (Auto) [place] % (Auto) Eos % (Auto) Baso % (Auto) Neut # Lymph # [place] # Eos # Baso # Neutrophils % (Manual) Band Neutrophils % Lymphocytes % (Manual) Monocytes % (Manual) Platelet Estimate Large Platelets Hypochromasia (manual) Poikilocytosis (manual Ovalocytes Puncture Site pO2 Antony Test VBG pH VBG pCO2 VBG HCO3 VBG O2 Sat (Calc) VBG Base Excess Crit Value Called To Crit Value Called By Crit Value Read Back Blood Gas Notified Time Sodium Potassium Chloride Carbon Dioxide Anion Gap BUN Creatinine Est GFR ( Amer) Est GFR (Non-Af Amer) POC Glucose (mg/dL) 183 H 189 H Random Glucose Lactic Acid Calcium Phosphorus Magnesium Total Bilirubin AST ALT Alkaline Phosphatase Total Protein Albumin Globulin Albumin/Globulin Ratio Lipase Urine Color Urine Clarity Urine pH Ur Specific Bronson Urine Protein Urine Glucose (UA) Urine Ketones Urine Blood Urine Nitrate Urine Bilirubin Urine Urobilinogen Ur Leukocyte Esterase Urine WBC (Auto) Urine RBC (Auto) Serum Ketones EKG/Cardiology Studies: Cardiology / EKG Studies 12/09/16 19:50 ELECTROCARDIOGRAM Stat Comment: Mode Of Transportation: Reason For Exam: epigastric pain 12/09/16 20:17 ELECTROCARDIOGRAM Stat Comment: Mode Of Transportation: Reason For Exam: epigastric pain Fingerstick Blood Sugar Results: 229 Critical Care Progress Note - Nutrition Nutrition: Nutrition Category Date Time Status Liquid Diet [DIET] Diets 12/10/16 Lunch Active
[2016-12-10 12:13] LABS: CHLORIDE 108 mmol/L (98-107); POTASSIUM 4.2 mmol/L (3.6-5.2); SODIUM 136 mmol/L (132-148)
[2016-12-10 12:15] LABS: BILIRUBIN,TOTAL 0.4 mg/dL (0.2-1.3); CARBON DIOXIDE 18 mmol/L (22-30); GFR AFRICAN-AMERICAN > 60
[2016-12-10 12:16] LABS: ALKALINE PHOSPHATASE 73 U/L (38-126); ALT/SGPT 46 U/L (21-72); AST/SGOT 21 U/L (17-59); BLOOD UREA NITROGEN 22 mg/dL (9-20); CALCIUM 8.7 mg/dl (8.6-10.4); GLUCOSE,RANDOM 258 mg/dL (75-110); MAGNESIUM 2.1 mg/dL (1.6-2.3); PHOSPHOROUS 2.2 mg/dL (2.5-4.5); TOTAL PROTEIN 7.2 g/dL (6.3-8.3)
[2016-12-10] MEDS ORDERED: Insulin Human Regular 100 UNIT in Sodium Chloride 0.9% 99 ML IV PRN (13:45)
--- NOTE | 2016-12-10 14:40 | CP.PCM.PN ---
Subjective - Date & Time of Evaluation Date of Evaluation: 12/10/16 Time of Evaluation: 14:15 - Subjective Subjective: Patient reported feeling less fatigued and less abdominal pain now. He has been on insulin ggt and IVF Patient explains that he has DM for the past 20 years. He is visiting and ran out of his insulin. From what I understand he normally is on 30 Lantus at night, 12 humalog in AM, 20 in lunch, and 15 at PM Objective - Vital Signs/Intake and Output Vital Signs (last 24 hours): Temp Pulse Resp BP Pulse Ox 98.3 F 103 H 18 100/62 99 12/10/16 08:00 12/10/16 12:00 12/10/16 12:00 12/10/16 12:00 12/10/16 12:00 Intake and Output: 12/10/16 12/10/16 06:59 18:59 Intake Total 847.5 1165 Output Total 350 0 Balance 497.5 1165 - Medications Medications: Current Medications Heparin Sodium (Porcine) (Heparin) 5,000 units SC Q8 [facility] Last Admin: 12/10/16 13:20 Dose: 5,000 units Potassium Chloride 20 meq/ (Dextrose/Sodium Chloride) 1,010 mls @ 150 mls/hr IV .[id number] [facility] Last Admin: 12/10/16 13:35 Dose: Not Given Insulin Human Regular 100 unit (/ Sodium Chloride) 100 mls @ 6 mls/hr IV .[id number] PRN PRN Reason: Protocol Ondansetron HCl (Zofran Inj) 4 mg IVP Q6 PRN PRN Reason: Nausea/Vomiting Last Admin: 12/10/16 07:41 Dose: 4 mg Pantoprazole Sodium (Protonix Inj) 40 mg IVP DAILY [facility] Last Admin: 12/10/16 09:59 Dose: 40 mg - Labs Labs: 12/10/16 06:48 12/10/16 12:01 - Constitutional Appears: Well, Non-toxic, No Acute Distress - Head Exam Head Exam: NORMAL INSPECTION, NORMOCEPHALIC - Eye Exam Eye Exam: EOMI, Normal appearance, PERRL Pupil Exam: NORMAL ACCOMODATION - ENT Exam ENT Exam: Mucous Membranes Moist, Normal Exam - Neck Exam Neck Exam: Normal Inspection - Respiratory Exam Respiratory Exam: Clear to Ausculation Bilateral, NORMAL BREATHING PATTERN - Cardiovascular Exam Cardiovascular Exam: REGULAR RHYTHM - GI/Abdominal Exam GI & Abdominal Exam: Soft, Tenderness, Normal Bowel Sounds. absent: Distended, Firm, Guarding, Rigid Additional comments: Very mild epigastrium area tenderness - Extremities Exam Extremities Exam: Full ROM, Normal Capillary Refill - Neurological Exam Neurological Exam: Alert, Awake, CN II-XII Intact, Oriented x3 Neuro motor strength exam: Left Upper Extremity: 5, Right Upper Extremity: 5, Left Lower Extremity: 5, Right Lower Extremity: 5 - Psychiatric Exam Psychiatric exam: Normal Affect, Normal Mood - Skin Skin Exam: Normal Color, Warm Assessment and Plan - Assessment and Plan (Free Text) Assessment: DKA - 2/2 to patient not taking insulin medication for 4 days. 12/10: Improving, less abdominal pain, serum bicarb tiffany to 18, remains on insulin ggt and also IVF 12/09: VBG shows pH 7.13. WBC 21.4 Glucose 580 (upon admission) Creatinine 1.7 Potassium 5.3 CO2 8 Lipase 838 AST/ALT/Tbili WNL Ketones Moderate UA shows no infection Abdominal/Pelvis CT - No obstructive uropathy. Normal appendix. Small hiatal hernia. Started on D5/0.45NS @150mL/hr Started on Insulin drip Prophylactic Care Heparin 5000u SC Q8 Protonix 40mg IVP daily
[2016-12-10] MEDS: Piperacillin/Tazobact 3.375 GM in Sodium Chloride 100 ML IVPB SCH ×2 (15:28→20:59)
[2016-12-10] MEDS: Sodium Chloride 0.9% 1,000 ML IV SCH (16:11)
[2016-12-10] MEDS: (Novolin R) Insulin Human Regular 100 units/ml vial SC SCH ×2 (16:32→22:00)
[2016-12-10] MEDS ORDERED: (Lantus) Insulin Glargine, Recombinant SC SCH (22:00)
[2016-12-11] MEDS: Sodium Chloride 0.9% 1,000 ML IV SCH ×2 (00:54→08:07)
[2016-12-11] MEDS: Piperacillin/Tazobact 3.375 GM in Sodium Chloride 100 ML IVPB SCH ×3 (02:11→14:26)
[2016-12-11 06:35] LABS: BASO # 0.1 K/uL (0.0-0.2); EOS # 0.1 K/uL (0.0-0.7); EOS % 0.8 % (0.0-4.0); HEMATOCRIT 36.4 % (35.0-51.0); LYMPH # 1.7 K/uL (1.0-4.3); LYMPH % 19.5 % (20.0-40.0); MEAN CELL VOLUME 86.4 fL (80.0-94.0); MEAN CORPUSCULAR HEMOGLOBIN 30.2 pg (27.0-31.0); MEAN CORPUSCULAR HGB CONC 34.9 g/dL (33.0-37.0); MEAN PLATELET VOLUME 8.3 fL (7.2-11.7); MONO # 0.6 K/uL (0.0-0.8); MONO % 7.1 % (0.0-10.0); RED CELL DISTRIBUTION WIDTH 13.7 % (11.5-14.5); WHITE BLOOD COUNT 8.7 K/uL (4.8-10.8)
[2016-12-11 06:48] LABS: CHLORIDE 107 mmol/L (98-107); SODIUM 136 mmol/L (132-148)
[2016-12-11 06:50] LABS: GFR AFRICAN-AMERICAN > 60
[2016-12-11 06:51] LABS: ALKALINE PHOSPHATASE 67 U/L (38-126); ALT/SGPT 42 U/L (21-72); AST/SGOT 22 U/L (17-59); BILIRUBIN,TOTAL 0.6 mg/dL (0.2-1.3); BLOOD UREA NITROGEN 18 mg/dL (9-20); CARBON DIOXIDE 18 mmol/L (22-30); GLUCOSE,RANDOM 229 mg/dL (75-110); PHOSPHOROUS 2.9 mg/dL (2.5-4.5); TOTAL PROTEIN 6.1 g/dL (6.3-8.3)
[2016-12-11 06:52] LABS: MAGNESIUM 1.9 mg/dL (1.6-2.3)
[2016-12-11] MEDS: (Novolin R) Insulin Human Regular 100 units/ml vial SC SCH ×3 (08:07→16:13)
[2016-12-11 08:50] VITALS: O2SAT 100
[2016-12-11] MEDS ORDERED: Sodium Chloride 0.9% 1,000 ML IV SCH (09:19)
[2016-12-11] MEDS ORDERED: (Lantus) Insulin Glargine, Recombinant SC SCH (10:00)
--- NOTE | 2016-12-11 12:33 | CP.CCUPN ---
CCU Subjective - Physician Review Events Since Last Encounter (Free Text): 12/11/16 12:33 Patient is currently off insulin drip. Glucose is controlled well. Doing well. We'll transfer the patient to the medical floor. Diagnosis uncontrolled diabetes, DKA noncompliance CCU Objective - Vital Signs / Intake & Output Vital Signs (Last 4 hours): Vital Signs Temp 12/11/16 12:00 97.6 F Intake and Output (Last 8hrs): Intake & Output 12/10/16 12/11/16 12/11/16 22:59 06:59 14:59 Intake Total 1367 1258 1225 Output Total 450 800 300 Balance 917 458 925 Weight 165 lb Intake: Intake, IV Amount 1047 1038 725 Left Hand 1038 1038 250 Right Antecubital 9 0 Right Forearm 475 Oral 320 220 500 Output: Urine 450 800 300 Urine, Voided 450 800 300 Other: # Voids Urine, Voided 0 0 # Bowel Movements 0 0 0 - Medications Active Medications: Active Medications Generic Name Dose Route Start Last Admin Trade Name Freq PRN Reason Stop Dose Admin Heparin Sodium (Porcine) 5,000 units 12/10/16 06:00 12/11/16 06:08 Heparin SC 5,000 units Q8 SEBLE Administration Piperacillin Sod/Tazobactam 100 mls @ 200 mls/hr 12/10/16 15:00 12/11/16 08: 06 Sod 3.375 gm/ Sodium Chloride IVPB 200 mls/hr Q6H SEBLE Administration Sodium Chloride 1,000 mls @ 75 mls/hr 12/11/16 09:19 12/11/16 10:54 Sodium Chloride 0.9% IV 75 mls/hr .[id number] SEBLE Administration Insulin Glargine 15 unit 12/11/16 10:00 12/11/16 10:52 Lantus SC 15 u Q12 SEBLE Administration Insulin Human Regular 0 unit 12/10/16 16:30 12/11/16 08:07 Novolin R SC 4 unit ACHS SEBLE Administration Protocol Ondansetron HCl 4 mg 12/09/16 23:53 12/11/16 10:54 Zofran Inj IVP 4 mg Q6 PRN Administration Nausea/Vomiting - Patient Studies Lab Studies: Microbiology Studies 12/09/16 20:11 Urine Culture - Final Urine,Clean Catch No Growth (<1,000 CFU/ML) Lab Studies 12/11/16 12/11/16 12/11/16 Range/Units 07:09 06:29 06:29 WBC 8.7 (4.8-10.8) K/uL RBC 4.22 L (4.40-5.90) Mil/uL Hgb 12.7 (12.0-18.0) g/dL Hct 36.4 (35.0-51.0) % MCV 86.4 (80.0-94.0) fL MCH 30.2 (27.0-31.0) pg MCHC 34.9 (33.0-37.0) g/dL RDW 13.7 (11.5-14.5) % Plt Count 272 (130-400) K/uL MPV 8.3 (7.2-11.7) fL Neut % (Auto) 71.6 (50.0-75.0) % Lymph % (Auto) 19.5 L (20.0-40.0) % Luna % (Auto) 7.1 (0.0-10.0) % Eos % (Auto) 0.8 (0.0-4.0) % Baso % (Auto) 1.0 (0.0-2.0) % Neut # 6.2 (1.8-7.0) K/uL Lymph # 1.7 (1.0-4.3) K/uL Luna # 0.6 (0.0-0.8) K/uL Eos # 0.1 (0.0-0.7) K/uL Baso # 0.1 (0.0-0.2) K/uL Sodium 136 (132-148) mmol/L Potassium 4.0 (3.6-5.2) mmol/L Chloride 107 (98-107) mmol/L Carbon Dioxide 18 L (22-30) mmol/L Anion Gap 15 (10-20) BUN 18 (9-20) mg/dL Creatinine 1.1 (0.8-1.5) mg/dL Est GFR ( Amer) > 60 Est GFR (Non-Af Amer) > 60 POC Glucose (mg/dL) 261 H (65-110) mg/dL Random Glucose 229 H (75-110) mg/dL Calcium 8.0 L (8.6-10.4) mg/dl Phosphorus 2.9 (2.5-4.5) mg/dL Magnesium 1.9 (1.6-2.3) mg/dL Total Bilirubin 0.6 (0.2-1.3) mg/dL AST 22 (17-59) U/L ALT 42 (21-72) U/L Alkaline Phosphatase 67 (38-126) U/L Total Protein 6.1 L (6.3-8.3) g/dL Albumin 3.1 L (3.5-5.0) g/dL Globulin 3.0 (2.2-3.9) gm/dL Albumin/Globulin Ratio 1.0 (1.0-2.1) 12/11/16 12/10/16 12/10/16 Range/Units 01:44 21:24 16:30 WBC (4.8-10.8) K/uL RBC (4.40-5.90) Mil/uL Hgb (12.0-18.0) g/dL Hct (35.0-51.0) % MCV (80.0-94.0) fL MCH (27.0-31.0) pg MCHC (33.0-37.0) g/dL RDW (11.5-14.5) % Plt Count (130-400) K/uL MPV (7.2-11.7) fL Neut % (Auto) (50.0-75.0) % Lymph % (Auto) (20.0-40.0) % Luna % (Auto) (0.0-10.0) % Eos % (Auto) (0.0-4.0) % Baso % (Auto) (0.0-2.0) % Neut # (1.8-7.0) K/uL Lymph # (1.0-4.3) K/uL Luna # (0.0-0.8) K/uL Eos # (0.0-0.7) K/uL Baso # (0.0-0.2) K/uL Sodium (132-148) mmol/L Potassium (3.6-5.2) mmol/L Chloride (98-107) mmol/L Carbon Dioxide (22-30) mmol/L Anion Gap (10-20) BUN (9-20) mg/dL Creatinine (0.8-1.5) mg/dL Est GFR ( Amer) Est GFR (Non-Af Amer) POC Glucose (mg/dL) 332 H 413 H* 168 H (65-110) mg/dL Random Glucose (75-110) mg/dL Calcium (8.6-10.4) mg/dl Phosphorus (2.5-4.5) mg/dL Magnesium (1.6-2.3) mg/dL Total Bilirubin (0.2-1.3) mg/dL AST (17-59) U/L ALT (21-72) U/L Alkaline Phosphatase (38-126) U/L Total Protein (6.3-8.3) g/dL Albumin (3.5-5.0) g/dL Globulin (2.2-3.9) gm/dL Albumin/Globulin Ratio (1.0-2.1) 12/10/16 12/10/16 12/10/16 Range/Units 15:01 14:04 13:07 WBC (4.8-10.8) K/uL RBC (4.40-5.90) Mil/uL Hgb (12.0-18.0) g/dL Hct (35.0-51.0) % MCV (80.0-94.0) fL MCH (27.0-31.0) pg MCHC (33.0-37.0) g/dL RDW (11.5-14.5) % Plt Count (130-400) K/uL MPV (7.2-11.7) fL Neut % (Auto) (50.0-75.0) % Lymph % (Auto) (20.0-40.0) % Luna % (Auto) (0.0-10.0) % Eos % (Auto) (0.0-4.0) % Baso % (Auto) (0.0-2.0) % Neut # (1.8-7.0) K/uL Lymph # (1.0-4.3) K/uL Luna # (0.0-0.8) K/uL Eos # (0.0-0.7) K/uL Baso # (0.0-0.2) K/uL Sodium (132-148) mmol/L Potassium (3.6-5.2) mmol/L Chloride (98-107) mmol/L Carbon Dioxide (22-30) mmol/L Anion Gap (10-20) BUN (9-20) mg/dL Creatinine (0.8-1.5) mg/dL Est GFR ( Amer) Est GFR (Non-Af Amer) POC Glucose (mg/dL) 252 H 323 H 353 H (65-110) mg/dL Random Glucose (75-110) mg/dL Calcium (8.6-10.4) mg/dl Phosphorus (2.5-4.5) mg/dL Magnesium (1.6-2.3) mg/dL Total Bilirubin (0.2-1.3) mg/dL AST (17-59) U/L ALT (21-72) U/L Alkaline Phosphatase (38-126) U/L Total Protein (6.3-8.3) g/dL Albumin (3.5-5.0) g/dL Globulin (2.2-3.9) gm/dL Albumin/Globulin Ratio (1.0-2.1) Laboratory Results - last 24 hr 12/10/16 12/10/16 12/10/16 13:07 14:04 15:01 WBC RBC Hgb Hct MCV MCH MCHC RDW Plt Count MPV Neut % (Auto) Lymph % (Auto) Luna % (Auto) Eos % (Auto) Baso % (Auto) Neut # Lymph # Luna # Eos # Baso # Sodium Potassium Chloride Carbon Dioxide Anion Gap BUN Creatinine Est GFR ( Amer) Est GFR (Non-Af Amer) POC Glucose (mg/dL) 353 H 323 H 252 H Random Glucose Calcium Phosphorus Magnesium Total Bilirubin AST ALT Alkaline Phosphatase Total Protein Albumin Globulin Albumin/Globulin Ratio 12/10/16 12/10/16 12/11/16 16:30 21:24 01:44 WBC RBC Hgb Hct MCV MCH MCHC RDW Plt Count MPV Neut % (Auto) Lymph % (Auto) Luna % (Auto) Eos % (Auto) Baso % (Auto) Neut # Lymph # Luna # Eos # Baso # Sodium Potassium Chloride Carbon Dioxide Anion Gap BUN Creatinine Est GFR ( Amer) Est GFR (Non-Af Amer) POC Glucose (mg/dL) 168 H 413 H* 332 H Random Glucose Calcium Phosphorus Magnesium Total Bilirubin AST ALT Alkaline Phosphatase Total Protein Albumin Globulin Albumin/Globulin Ratio 12/11/16 12/11/16 12/11/16 06:29 06:29 07:09 WBC 8.7 RBC 4.22 L Hgb 12.7 Hct 36.4 MCV 86.4 MCH 30.2 MCHC 34.9 RDW 13.7 Plt Count 272 MPV 8.3 Neut % (Auto) 71.6 Lymph % (Auto) 19.5 L Luna % (Auto) 7.1 Eos % (Auto) 0.8 Baso % (Auto) 1.0 Neut # 6.2 Lymph # 1.7 Luna # 0.6 Eos # 0.1 Baso # 0.1 Sodium 136 Potassium 4.0 Chloride 107 Carbon Dioxide 18 L Anion Gap 15 BUN 18 Creatinine 1.1 Est GFR ( Amer) > 60 Est GFR (Non-Af Amer) > 60 POC Glucose (mg/dL) 261 H Random Glucose 229 H Calcium 8.0 L Phosphorus 2.9 Magnesium 1.9 Total Bilirubin 0.6 AST 22 ALT 42 Alkaline Phosphatase 67 Total Protein 6.1 L Albumin 3.1 L Globulin 3.0 Albumin/Globulin Ratio 1.0 Fingerstick Blood Sugar Results: 261 Critical Care Progress Note - Nutrition Nutrition: Nutrition Category Date Time Status Heart Healthy Diet [DIET] Diets 12/10/16 Breakfast Active
--- NOTE | 2016-12-11 14:27 | CP.PCM.DIS ---
Provider - Provider Date of Admission: 12/09/16 22:18 Attending physician: Cleveland Del Valle DO Time Spent in preparation of Discharge (in minutes): 29 Hospital Course - Lab Results Lab Results: Micro Results 12/09/16 20:11 Urine,Clean Catch Urine Culture - Final No Growth (<1,000 CFU/ML) Most Recent Lab Values WBC 8.7 K/uL (4.8-10.8) 12/11/16 06:29 RBC 4.22 Mil/uL (4.40-5.90) L 12/11/16 06:29 Hgb 12.7 g/dL (12.0-18.0) 12/11/16 06:29 Hct 36.4 % (35.0-51.0) 12/11/16 06: MCV 86.4 fL (80.0-94.0) 12/11/16 06: MCH 30.2 pg (27.0-31.0) 12/11/16 06: MCHC 34.9 g/dL (33.0-37.0) 12/11/16 06:29 RDW 13.7 % (11.5-14.5) 12/11/16 06:29 Plt Count 272 K/uL (130-400) 12/11/16 06:29 MPV 8.3 fL (7.2-11.7) 12/11/16 06: Neut % (Auto) 71.6 % (50.0-75.0) 12/11/16 06: Lymph % (Auto) 19.5 % (20.0-40.0) L 12/11/16 06:29 [place] % (Auto) 7.1 % (0.0-10.0) 12/11/16 06:29 Eos % (Auto) 0.8 % (0.0-4.0) 12/11/16 06:29 Baso % (Auto) 1.0 % (0.0-2.0) 12/11/16 06:29 Neut # 6.2 K/uL (1.8-7.0) 12/11/16 06: Lymph # 1.7 K/uL (1.0-4.3) 12/11/16 06:29 [place] # 0.6 K/uL (0.0-0.8) 12/11/16 06:29 Eos # 0.1 K/uL (0.0-0.7) 12/11/16 06:29 Baso # 0.1 K/uL (0.0-0.2) 12/11/16 06:29 Neutrophils % (Manual) 85 % (50-75) H 12/10/16 06:48 Band Neutrophils % 2 % (0-2) 12/10/16 06:48 Lymphocytes % (Manual) 6 % (20-40) L 12/10/16 06:48 Monocytes % (Manual) 7 % (0-10) 12/10/16 06:48 Platelet Estimate Normal (NORMAL) 12/10/16 06:48 Large Platelets Present 12/10/16 06:48 Hypochromasia (manual) Slight 12/10/16 06:48 Poikilocytosis (manual Slight 12/10/16 06:48 Ovalocytes Slight 12/10/16 06:48 Puncture Site Venous 12/09/16 20:15 pO2 37 mm/Hg (30-55) 12/09/16 20:15 Antony Test Na 12/09/16 20:15 VBG pH 7.13 (7.32-7.43) L* 12/09/16 20:15 VBG pCO2 28 mmHg (40-60) L 12/09/16 20:15 VBG HCO3 9.2 mmol/L 12/09/16 20:15 VBG O2 Sat (Calc) 71.4 % (40-65) H 12/09/16 20:15 VBG Base Excess -18.5 mmol/L (0.0-2.0) L 12/09/16 20:15 Crit Value Called To Dr. de la rosa imm 12/09/16 20:15 Crit Value Called By April rt 12/09/16 20:15 Crit Value Read Back Y 12/09/16 20:15 Blood Gas Notified Time 2019 12/09/16 20:15 Sodium 136 mmol/L (132-148) 12/11/16 06:29 Potassium 4.0 mmol/L (3.6-5.2) 12/11/16 06:29 Chloride 107 mmol/L (98-107) 12/11/16 06:29 Carbon Dioxide 18 mmol/L (22-30) L 12/11/16 06:29 Anion Gap 15 (10-20) 12/11/16 06:29 BUN 18 mg/dL (9-20) 12/11/16 06:29 Creatinine 1.1 mg/dL (0.8-1.5) 12/11/16 06:29 Est GFR ( Amer) > 60 10 06:29 Est GFR (Non-Af Amer) > 60 12/11/16 06:29 POC Glucose (mg/dL) 320 mg/dL (65-110) H 12/11/16 12:10 Random Glucose 229 mg/dL (75-110) H 12/11/16 06:29 Lactic Acid 1.8 mmol/L (0.7-2.1) 12/09/16 21:14 Calcium 8.0 mg/dl (8.6-10.4) L 12/11/16 06:29 Phosphorus 2.9 mg/dL (2.5-4.5) 12/11/16 06:29 Magnesium 1.9 mg/dL (1.6-2.3) 12/11/16 06:29 Total Bilirubin 0.6 mg/dL (0.2-1.3) 12/11/16 06:29 AST 22 U/L (17-59) 12/11/16 06:29 ALT 42 U/L (21-72) 12/11/16 06:29 Alkaline Phosphatase 67 U/L (38-126) 12/11/16 06:29 Total Protein 6.1 g/dL (6.3-8.3) L 12/11/16 06:29 Albumin 3.1 g/dL (3.5-5.0) L 12/11/16 06:29 Globulin 3.0 gm/dL (2.2-3.9) 12/11/16 06:29 Albumin/Globulin Ratio 1.0 (1.0-2.1) 12/11/16 06:29 Lipase 838 U/L (23-300) H 12/09/16 19:59 Urine Color Straw (YELLOW) 12/09/16 19:59 Urine Clarity Clear (Clear) 12/09/16 19:59 Urine pH 5.0 (5.0-8.0) 12/09/16 19:59 Ur Specific [place] 1.020 (1.003-1.030) 12/09/16 19:59 Urine Protein 2+ mg/dL (NEGATIVE) H 12/09/16 19:59 Urine Glucose (UA) 3+ mg/dL (Normal) H 12/09/16 19:59 Urine Ketones 2+ mg/dL (NEGATIVE) H 12/09/16 19:59 Urine Blood 1+ (NEGATIVE) H 12/09/16 19:59 Urine Nitrate Negative (NEGATIVE) 12/09/16 19:59 Urine Bilirubin Negative (NEGATIVE) 12/09/16 19:59 Urine Urobilinogen Normal mg/dL (0.2-1.0) 12/09/16 19:59 Ur Leukocyte Esterase Neg Bon/uL (Negative) 12/09/16 19:59 Urine WBC (Auto) < 1 /hpf (0-5) 12/09/16 19:59 Urine RBC (Auto) 3 /hpf (0-3) 12/09/16 19:59 Serum Ketones Moderate (NEGATIVE) 12/09/16 19:59 - Hospital Course Hospital Course: This is a very nice 46 year old man who came on 12/09. He has a history of DM and was having several days of nausea and vommitting. From what I understand he was recently arrived from [facility] and has been out of his insulin for 5 days before he came to the hospital. Even before this he explains that he was already trying use his insulin minimally so as to conserve it. He explains that he has had diabetes for at least 10 years and he normally takes Lantus 32 units SQ QHS as well as Humalog 15 units in AM, 20 units at lunch and 12 units in PM. He has not been on lisinorpil or a statin before and I explain to him that he should. [place] a physician [place]. When he came to the ER he had moderate serum ketones, a pH of 7.13, as well as a serum bicarb of 8. He required an insulin ggt as well as IVF, K replacements and then was changed over to SQ insulin once the anion gap imrpoved. On 12/11 he was tolerating his diet and and felt well. He denied having any more nausea and vommitting and denied having abdominal pain. He did not report fatigue. On 12/11 he was to be transffered out of ICU to medical floors - however the patient explains he has to work [employer] and asked if he could go home. So will DC today. I explained to the patient that we will write RX as well as he needs to follow up in the [facility]. He also needed srynges, diabetic test strips, and also needles and lancets. He still has his glucometer. RX Lantus RX Humalog RX Lisinopril 5 RX Simvastatin 5 Also RX for diabetic supplies Discharge Exam - Head Exam Head Exam: NORMAL INSPECTION, NORMOCEPHALIC - Eye Exam Eye Exam: EOMI, Normal appearance Pupil Exam: NORMAL ACCOMODATION - ENT Exam ENT Exam: Mucous Membranes Moist - Respiratory Exam Respiratory Exam: Clear to PA & Lateral, NORMAL BREATHING PATTERN, UNREMARKABLE - Cardiovascular Exam Cardiovascular Exam: REGULAR RHYTHM - GI/Abdominal Exam GI & Abdominal Exam: Normal Bowel Sounds, Unremarkable - Rectal Exam Rectal Exam: NORMAL INSPECTION - Neurological Exam Neurological exam: Alert, Oriented x3 - Psychiatric Exam Psychiatric exam: Normal Affect, Normal Mood - Skin Skin Exam: Normal Color, Warm Discharge Plan - Discharge Medications Prescriptions: Insulin Glargine,Hum.rec.anlog [Lantus] 30 unit SQ QPM #1 vial Insulin Lispro [Humalog (Insulin Lispro)] 15 unit SQ TIDAC #1 cartridge Lisinopril [Prinivil] 5 mg PO DAILY #30 tablet Simvastatin 20 mg PO DAILY #30 tablet - Follow Up Plan Condition: CRITICAL Disposition: HOME/ ROUTINE Instructions: Diabetic Ketoacidosis (DC), Diabetic Ketoacidosis (GEN)
[2016-12-11] MEDS ORDERED: (Lantus) Insulin Glargine, Recombinant SC STA (15:42)
[2016-12-11 16:52] VITALS: BP 141/91; PULSE 85; RESP 12; TEMP 98
== END 2016-12-11 16:30 | disposition home or self-care (01) | DRG 639 ==
LOC: C.ER 18:04 → C.9E 22:18 → C.9I 12-10 00:59
PROVIDERS: ADMIT Internal Medicine; ATTEND Hospitalist
DX: E10.10 Type 1 diabetes mellitus with ketoacidosis without coma (principal); H40.9 Unspecified glaucoma; K44.9 Diaphragmatic hernia without obstruction or gangrene

== ENCOUNTER 2018-04-24 08:47 | Outpatient (CLI) | payer OTHER | END 2018-04-24 08:48 | disposition home or self-care (01) | LOC: C.LAB 08:47 | DX: E10.65 Type 1 diabetes mellitus with hyperglycemia (principal); E78.2 Mixed hyperlipidemia ==